=== PATIENT | female | born 1960 | race Caucasian/White ===

== ENCOUNTER → 2016-07-09 | Outpatient (CLI) | payer BC ==
[~2016-07-09] VITALS: Ht 158.8 cm; Wt 100.7 kg
[~2016-07-09] MED LIST: ALTACE10 MG PO; ASPIR-LOW81 MG PO; COUMADIN5 MG PO; Ecotrin PO; FIORICET 50-301 EACH PO; KEFLEX500 MG PO; LEVO-T50 MCG PO; LEVOTHYROXINE50 MCG PO; LIPITOR20 MG PO; LOVENOX30 MG/0.3 SC; PERCOCET 5/31 TABLET PO; PRILOSEC OTC20 M1 PO; Vicodin,Lortab 5/500 PO; ZOFRAN ODT4 MG PO
== END | disposition home or self-care (01) ==
LOC: AMB 14:46
PROC: 0DBE8ZZ Excision of Large Intestine, Via Natural or Artificial Opening Endoscopic (ICD-10-PCS; principal; 2016-07-09)
DX: Z12.11 Encounter for screening for malignant neoplasm of colon (principal); K62.1 Rectal polyp; Z86.73 Personal history of transient ischemic attack (TIA), and cerebral infarction without residual deficits; Z79.82 Long term (current) use of aspirin; Z79.01 Long term (current) use of anticoagulants; E03.9 Hypothyroidism, unspecified; Z87.891 Personal history of nicotine dependence
CPT/HCPCS: 88305; B4087

== ENCOUNTER 2016-09-10 11:39 | Emergency (ER) | payer BC ==
[~2016-09-10] VITALS: Ht 157.5 cm; Wt 102.0 kg
[2016-09-10 15:04] LABS: INTER. NORMALIZED RATIO 2.9; PROTHROMBIN TIME 30.1 (9.2-11.2)
[2016-09-10] MEDS ORDERED: INDOCIN50 MG PO (15:37)
[2016-09-10] MEDS ORDERED: FLEXERIL10 MG PO (15:37)
[2016-09-10 15:49] VITALS: BP 125/84
== END 2016-09-10 15:51 | disposition home or self-care (01) ==
LOC: EME 11:39
PROVIDERS: Physician Assistant
DX: S29.012A Strain of muscle and tendon of back wall of thorax, initial encounter (principal); Z87.891 Personal history of nicotine dependence; Z86.73 Personal history of transient ischemic attack (TIA), and cerebral infarction without residual deficits
CPT/HCPCS: 71020; 85610; 99281; 99284; J1885